=== PATIENT | male | born 1945 | race Caucasian/White ===

== ENCOUNTER 2018-05-09 10:17 | Day surgery (SDC) | payer MEDICARE, MEDICAID ==
[~2018-05-09] VITALS: Ht 185.4 cm; Wt 126.6 kg
[2018-05-09] VITALS (13 sets, daily range): BP systolic 123–148; BP diastolic 65–85
[2018-05-09] MEDS ORDERED: diphenhydrAMINE 25mg capsule PO PRN (10:45)
[2018-05-09] MEDS ORDERED: LORazepam 0.5 MG tablet PO PRN (10:45)
[2018-05-09] MEDS ORDERED: nitroGLYCERIN 0.4mg SUBLingual tab SL PRN (10:45)
[2018-05-09] MEDS ORDERED: normal saline 1000ml 1,000 ML IV SCH (10:45)
[2018-05-09] MEDS ORDERED: BUPR150T15 PO (11:18)
[2018-05-09] MEDS ORDERED: TIOT18CA3 IH (11:18)
[2018-05-09] MEDS ORDERED: HYDR-3965 PO (11:18)
[2018-05-09] MEDS ORDERED: NITR0.4T51 SL (11:18)
[2018-05-09] MEDS ORDERED: GABA600T2 PO (11:18)
[2018-05-09] MEDS ORDERED: ASCO500C15 PO (11:18)
[2018-05-09] MEDS ORDERED: OSC500T PO (11:18)
[2018-05-09] MEDS ORDERED: CYAN250014 PO (11:18)
[2018-05-09] MEDS ORDERED: CARV-50 PO (11:18)
[2018-05-09] MEDS ORDERED: RIVA20TA PO (11:18)
[2018-05-09] MEDS ORDERED: AMIO200T27 PO (11:18)
[2018-05-09] MEDS ORDERED: OMEG-42 PO (11:18)
[2018-05-09] MEDS ORDERED: MULT-1085 PO (11:18)
[2018-05-09] MEDS ORDERED: ALBU18HF2 INH (11:18)
[2018-05-09 11:27] LABS: BASOPHILS % (AUTO) 0.4 % (0-1); EOSINOPHILS # (AUTO) 0.1 X10'3 (0-0.9); HEMATOCRIT 46.5 % (42.0-52.0); LYMPHOCYTES # (AUTO) 1.2 X10'3 (1.1-4.8); LYMPHOCYTES % (AUTO) 18.5 % (21-51); MEAN CORPUSCULAR HEMOGLOBIN 34.1 PG (27.0-31.0); MEAN CORPUSCULAR HGB CONC 34.3 % (33.0-36.5); MEAN CORPUSCULAR VOLUME 99.3 FL (78-98); MEAN PLATELET VOLUME 7.9 FL (7.4-10.4); MONOCYTES # (AUTO) 0.4 X10'3 (0-0.9); NEUTROPHILS # (AUTO) 4.8 X10'3 (1.8-7.7); NEUTROPHILS % (AUTO) 74.1 % (42-75); PLATELET COUNT 207 X10'3 (140-440); RED BLOOD COUNT 4.69 X10'6 (4.70-6.10); WHITE BLOOD COUNT 6.5 X10'3 (4.5-11.0)
[2018-05-09 11:36] LABS: ALBUMIN 4.1 G/DL (3.4-5.0); ANION GAP 12 (8-16); BLOOD UREA NITROGEN 9 MG/DL (7-18); BUN/CREATININE RATIO 9.4 (5.4-32.0); CALCIUM 9.3 MG/DL (8.5-10.1); CHLORIDE 103 MMOL/L (99-107); CREATININE 0.96 MG/DL (0.60-1.10); GLUCOSE 86 MG/DL (70-104); SODIUM 141 MMOL/L (135-145); TOTAL CARBON DIOXIDE 26.1 MMOL/L (24-32); eGFR 77 ML/MIN
[2018-05-09 11:43] LABS: PARTIAL THROMBOPLASTIN TIME 28 SECONDS (22-32); PROTHROMBIN TIME 10.2 SECONDS (9.0-12.0)
[2018-05-09] MEDS ORDERED: LIDOcaine 1% 30ml preserv. free vial ONE (13:21)
[2018-05-09] MEDS ORDERED: fentaNYL/PF 50MCG/1 ML 2ML syringe ONE ×2 (13:21→14:34)
[2018-05-09] MEDS ORDERED: midazolam 2 mg/2 ml injection ONE ×2 (13:21→14:35)
[2018-05-09] MEDS ORDERED: iohexol 350 MG/ML 50ML vial IV ONE ×2 (13:21→14:30)
[2018-05-09] MEDS ORDERED: iohexol 350MG/ML 100ml bottle IV ONE (13:21)
[2018-05-09] MEDS ORDERED: proCHLORperazine 10 MG/2 ml inj IV PRN (15:40)
[2018-05-09] MEDS ORDERED: OXAZEpam 15mg capsule PO PRN (15:40)
[2018-05-09] MEDS ORDERED: ondansetron/PF 4mg/2ml inj IV PRN (15:40)
[2018-05-09] MEDS ORDERED: HYDROcodone/acetaminophen 5mg/325mg tablet PO PRN (15:40)
[2018-05-09] MEDS ORDERED: HYDROcodone/acetaminophen 10/325mg tab PO PRN (15:40)
== END 2018-05-09 21:00 | disposition home or self-care (01) ==
LOC: SSTAY O 10:17
PROVIDERS: ATTEND Internal Medicine Cardiovascular Disease
DX: I25.10 Atherosclerotic heart disease of native coronary artery without angina pectoris (principal); I45.19 Other right bundle-branch block; G47.33 Obstructive sleep apnea (adult) (pediatric); I10 Essential (primary) hypertension; M19.90 Unspecified osteoarthritis, unspecified site; G89.29 Other chronic pain; I48.91 Unspecified atrial fibrillation; G62.89 Other specified polyneuropathies; I71.4 Abdominal aortic aneurysm, without rupture; F17.210 Nicotine dependence, cigarettes, uncomplicated; Z86.711 Personal history of pulmonary embolism; Z86.79 Personal history of other diseases of the circulatory system; Z98.41 Cataract extraction status, right eye; Z98.42 Cataract extraction status, left eye; Z85.818 Personal history of malignant neoplasm of other sites of lip, oral cavity, and pharynx; Z86.718 Personal history of other venous thrombosis and embolism; Z95.828 Presence of other vascular implants and grafts; Z79.891 Long term (current) use of opiate analgesic; Z86.74 Personal history of sudden cardiac arrest; Z96.642 Presence of left artificial hip joint; Z85.819 Personal history of malignant neoplasm of unspecified site of lip, oral cavity, and pharynx; Z79.899 Other long term (current) drug therapy; Z98.890 Other specified postprocedural states
CPT/HCPCS: 36415; 71046; 75625; 80048; 85025; 85610; 85730; 93005; 93458; 99152; 99153; A6257; C1760; C1769; J1644; J2250; J3010; J3490; J7030; Q0163; Q9967; 93567; A4620

== ENCOUNTER 2024-04-02 06:58 | Inpatient (IN) | payer MEDICARE, MEDICAID ==
[2024-04-02] VITALS (19 sets, daily range): BP systolic 74–135; BP diastolic 42–93; PULSE 81–101; RESP 18–26; TEMP 96.5–97.3; O2SAT 92–97
[~2024-04-02] VITALS: Ht 180.3 cm; Wt 93.2 kg
[~2024-04-02 06:58] MED LIST: ALBU18HF2 INH; AMIO200T27 PO; ASCO500C18 PO; BUPR-231 PO; CARV-50 PO; CYAN250014 PO; GABA600T13 PO; HYDR-3965 PO; MULT-1085 PO; NITR0.4T51 SL; OMEG-42 PO; OSC500T PO; RIVA20TA PO; TIOT18CA3 IH
[2024-04-02] MEDS: diltiazem-NS 100mg/100ml 100 ML IV SCH ×2 (08:14→14:21)
[2024-04-02 09:06] LABS: BASOPHILS # (AUTO) 0.1 X10'3 (0-0.2); BASOPHILS % (AUTO) 0.6 % (0-1); EOSINOPHILS % (AUTO) 0.4 % (0-6); HEMATOCRIT 40.4 % (42.0-52.0); HEMOGLOBIN 13.2 g/dl (14.0-17.9); LYMPHOCYTES # (AUTO) 0.9 X10'3 (1.1-4.8); MEAN CORPUSCULAR HEMOGLOBIN 29.8 PG (27.0-31.0); MEAN CORPUSCULAR HGB CONC 32.6 g/dL (33.0-36.5); MEAN CORPUSCULAR VOLUME 91.3 FL (78-98); MONOCYTES % (AUTO) 12.9 % (2-12); NEUTROPHILS # (AUTO) 5.8 X10'3 (1.8-7.7); NEUTROPHILS % (AUTO) 74.1 % (42-75); PLATELET COUNT 167 X10'3 (140-440); RED BLOOD COUNT 4.43 X10'6 (4.70-6.10); RED CELL DISTRIBUTION WIDTH 17.3 % (11.5-14.5); WHITE BLOOD COUNT 7.9 X10'3 (4.5-11.0)
[2024-04-02 09:28] LABS: ALBUMIN 3.3 G/DL (3.4-5.0); ANION GAP 9 (8-16); BLOOD UREA NITROGEN 19 MG/DL (7-18); BUN/CREATININE RATIO 15.8 (10.0-20.0); CALCIUM 9.4 MG/DL (8.5-10.1); CHLORIDE 103 MMOL/L (99-107); GLUCOSE 107 MG/DL (70-104); POTASSIUM 4.3 MMOL/L (3.5-5.1); PRO BRAIN NATRIURETIC PEPTIDE 17879 PG/ML (0-450); SODIUM 138 MMOL/L (135-145); TOTAL CARBON DIOXIDE 25.6 MMOL/L (24-32); eCRCL 55 ML/MIN; eGFR 59 ML/MIN
[2024-04-02] MEDS ORDERED: magnesium sulf-water 2g/50mL 50 ML IV PRN (09:40)
[2024-04-02] MEDS ORDERED: potassium Cl 20 mEq SR tablet PO PRN ×2 (09:40)
[2024-04-02] MEDS ORDERED: ondansetron/PF 4mg/2ml inj IV PRN (09:40)
[2024-04-02] MEDS ORDERED: magnesium sulf-water 4G/100mL 100 ML IV PRN (09:40)
[2024-04-02] MEDS ORDERED: potassium Cl 40MEQ/1/2NS 520ml 520 ML IV PRN (09:40)
[2024-04-02] MEDS ORDERED: magnesium Cl slow-release 64mg tablet PO PRN (09:40)
[2024-04-02] MEDS: K and/or MAG REPLACEMENT MC SCH (20:00)
[2024-04-03] VITALS (24 sets, daily range): BP systolic 92–124; BP diastolic 59–81; PULSE 56–121; RESP 13–28; TEMP 96.5–98.1; O2SAT 87–95
[2024-04-03] MEDS: furosemide 20 MG/2 ML vial IV ONE (04:48)
[2024-04-03] MEDS: levalbuterol 1.25mg/0.5ml nebule IH PRN (05:08)
[2024-04-03 06:36] LABS: BASOPHILS % (AUTO) 0.5 % (0-1); EOSINOPHILS % (AUTO) 0.1 % (0-6); HEMATOCRIT 40.6 % (42.0-52.0); HEMOGLOBIN 12.8 g/dl (14.0-17.9); LYMPHOCYTES # (AUTO) 0.3 X10'3 (1.1-4.8); LYMPHOCYTES % (AUTO) 4.2 % (21-51); MEAN CORPUSCULAR HEMOGLOBIN 28.7 PG (27.0-31.0); MEAN CORPUSCULAR HGB CONC 31.6 g/dL (33.0-36.5); MEAN PLATELET VOLUME 9.3 FL (7.4-10.4); MONOCYTES # (AUTO) 0.7 X10'3 (0-0.9); MONOCYTES % (AUTO) 9.2 % (2-12); NEUTROPHILS # (AUTO) 6.6 X10'3 (1.8-7.7); PLATELET COUNT 174 X10'3 (140-440); RED BLOOD COUNT 4.47 X10'6 (4.70-6.10); RED CELL DISTRIBUTION WIDTH 16.5 % (11.5-14.5); WHITE BLOOD COUNT 7.7 X10'3 (4.5-11.0)
[2024-04-03 06:47] LABS: ALBUMIN 3.4 G/DL (3.4-5.0); ANION GAP 14 (8-16); BLOOD UREA NITROGEN 23 MG/DL (7-18); CALCIUM 9.7 MG/DL (8.5-10.1); CHLORIDE 101 MMOL/L (99-107); CREATININE 1.28 MG/DL (0.60-1.10); GLUCOSE 112 MG/DL (70-104); MAGNESIUM 2.1 MG/DL (1.5-2.4); POTASSIUM 4.8 MMOL/L (3.5-5.1); SODIUM 138 MMOL/L (135-145); TOTAL CARBON DIOXIDE 22.9 MMOL/L (24-32); eCRCL 51 ML/MIN; eGFR 54 ML/MIN
[2024-04-03] MEDS: buPROPion SR 150mg tablet PO SCH (08:00)
[2024-04-03] MEDS ORDERED: DULO20CA18 PO (08:25)
[2024-04-03] MEDS ORDERED: LACT10SO3 PO (08:25)
[2024-04-03] MEDS ORDERED: BENZ-111 PO (08:25)
[2024-04-03] MEDS ORDERED: PRAV20TA4 PO (08:25)
[2024-04-03] MEDS ORDERED: FLUD0.1T PO (08:25)
[2024-04-03] MEDS ORDERED: TRAM50TA2 PO (08:25)
[2024-04-03] MEDS ORDERED: ACET-1008 PO (08:25)
[2024-04-03] MEDS ORDERED: LEVO112T5 PO (08:25)
[2024-04-03] MEDS ORDERED: MIDO10TA PO (08:25)
[2024-04-03] MEDS ORDERED: BUDE180A INH (08:25)
[2024-04-03] MEDS ORDERED: CELE-148 PO (08:25)
[2024-04-03] MEDS ORDERED: nitroGLYCERIN 0.4mg SUBLingual tab SL PRN (13:45)
[2024-04-03] MEDS: PERFLUTREN PROTEIN-A MICROSPHR (Optison) 0.22 MG/ML 3ML VIAL IV ONE (13:50)
[2024-04-03] MEDS: levoTHYROXINE 112mcg tablet PO SCH (14:12)
[2024-04-03] MEDS: traMADol 50MG tablet PO PRN (14:13)
[2024-04-03] MEDS: rivaroxaban 20mg tablet PO SCH (17:46)
[2024-04-03] MEDS: budesonide 0.5mg/2ml UD nebule IH SCH (20:31)
[2024-04-03] MEDS: ipratropium 0.5 MG/2.5ML nebule NEB PRN (20:31)
[2024-04-03] MEDS: duloxetine 20mg capsule.DR PO SCH (21:04)
[2024-04-03] MEDS: midodrine tablet 2.5 MG TABLET PO SCH (21:05)
[2024-04-03] MEDS: benzonatate 100mg capsule PO PRN (21:19)
[2024-04-04] VITALS (15 sets, daily range): BP systolic 90–133; BP diastolic 63–85; PULSE 55–119; RESP 18–28; TEMP 97–97.8; O2SAT 83–98
[2024-04-04] MEDS: methylPREDNISolone sod succ 125mg/2ml vial IV ONE (02:32)
[2024-04-04] MEDS: morphine 4 MG/ML inj SYRINge IV PRN (02:33)
[2024-04-04 09:16] LABS: BASOPHILS % (AUTO) 0.4 % (0-1); EOSINOPHILS % (AUTO) 0.1 % (0-6); HEMATOCRIT 43.8 % (42.0-52.0); HEMOGLOBIN 13.9 g/dl (14.0-17.9); LYMPHOCYTES # (AUTO) 0.2 X10'3 (1.1-4.8); LYMPHOCYTES % (AUTO) 2.7 % (21-51); MEAN CORPUSCULAR HEMOGLOBIN 28.9 PG (27.0-31.0); MEAN CORPUSCULAR HGB CONC 31.6 g/dL (33.0-36.5); MEAN CORPUSCULAR VOLUME 91.5 FL (78-98); MEAN PLATELET VOLUME 9.5 FL (7.4-10.4); MONOCYTES # (AUTO) 0.3 X10'3 (0-0.9); MONOCYTES % (AUTO) 3.6 % (2-12); NEUTROPHILS # (AUTO) 7.4 X10'3 (1.8-7.7); NEUTROPHILS % (AUTO) 93.2 % (42-75); PLATELET COUNT 178 X10'3 (140-440); RED BLOOD COUNT 4.79 X10'6 (4.70-6.10); WHITE BLOOD COUNT 7.9 X10'3 (4.5-11.0)
[2024-04-04 09:20] LABS: ALBUMIN 3.6 G/DL (3.4-5.0); ANION GAP 16 (8-16); BLOOD UREA NITROGEN 28 MG/DL (7-18); BUN/CREATININE RATIO 23.9 (10.0-20.0); CALCIUM 9.9 MG/DL (8.5-10.1); CHLORIDE 98 MMOL/L (99-107); CREATININE 1.17 MG/DL (0.60-1.10); GLUCOSE 123 MG/DL (70-104); MAGNESIUM 2.3 MG/DL (1.5-2.4); SODIUM 134 MMOL/L (135-145); TOTAL CARBON DIOXIDE 19.9 MMOL/L (24-32); eCRCL 56 ML/MIN; eGFR 60 ML/MIN
[2024-04-04 09:38] LABS: POTASSIUM 5.1 MMOL/L (3.5-5.1)
[2024-04-04] MEDS: atorvastatin 10mg tablet PO SCH (10:18)
[2024-04-04] MEDS: lactulose 20gm/30ml cup PO SCH (10:18)
[2024-04-04] MEDS ORDERED: carvedilol 6.25mg tablet PO SCH (20:45)
[2024-04-04] MEDS: lisinopril 5mg tablet PO SCH (21:46)
[2024-04-04] MEDS: furosemide 40mg/4ml inj IV SCH (21:46)
[2024-04-05] VITALS (13 sets, daily range): BP systolic 89–126; BP diastolic 56–89; PULSE 55–100; RESP 14–22; TEMP 97.4–97.9; O2SAT 93–100
[2024-04-05] MEDS: carVEDilol 12.5mg tablet PO SCH (07:52)
[2024-04-05] MEDS: apixaban 5mg tablet PO SCH (07:53)
[2024-04-05 09:09] LABS: BASOPHILS % (AUTO) 0.3 % (0-1); EOSINOPHILS % (AUTO) 0 % (0-6); HEMATOCRIT 40.5 % (42.0-52.0); HEMOGLOBIN 12.9 g/dl (14.0-17.9); LYMPHOCYTES # (AUTO) 0.3 X10'3 (1.1-4.8); LYMPHOCYTES % (AUTO) 3.5 % (21-51); MEAN CORPUSCULAR HEMOGLOBIN 28.9 PG (27.0-31.0); MEAN CORPUSCULAR HGB CONC 31.9 g/dL (33.0-36.5); MEAN CORPUSCULAR VOLUME 90.5 FL (78-98); MEAN PLATELET VOLUME 9.5 FL (7.4-10.4); MONOCYTES # (AUTO) 0.7 X10'3 (0-0.9); MONOCYTES % (AUTO) 8.9 % (2-12); NEUTROPHILS # (AUTO) 7.2 X10'3 (1.8-7.7); NEUTROPHILS % (AUTO) 87.3 % (42-75); PLATELET COUNT 147 X10'3 (140-440); RED BLOOD COUNT 4.47 X10'6 (4.70-6.10); RED CELL DISTRIBUTION WIDTH 17.1 % (11.5-14.5); WHITE BLOOD COUNT 8.2 X10'3 (4.5-11.0)
[2024-04-05 09:30] LABS: ALBUMIN 3.4 G/DL (3.4-5.0); ANION GAP 10 (8-16); BLOOD UREA NITROGEN 36 MG/DL (7-18); BUN/CREATININE RATIO 31.3 (10.0-20.0); CALCIUM 9.6 MG/DL (8.5-10.1); CHLORIDE 97 MMOL/L (99-107); CREATININE 1.15 MG/DL (0.60-1.10); GLUCOSE 100 MG/DL (70-104); MAGNESIUM 2.2 MG/DL (1.5-2.4); POTASSIUM 5.1 MMOL/L (3.5-5.1); SODIUM 133 MMOL/L (135-145); THYROID STIMULATING HORMONE 2.04 ulU/ml (0.34-4.50); TOTAL CARBON DIOXIDE 26.2 MMOL/L (24-32); eCRCL 57 ML/MIN; eGFR 62 ML/MIN
[2024-04-05] MEDS: magnesium hydroxide 30ml (MOM) UD suspension PO ONE (21:17)
[2024-04-05] MEDS: polyethylene glycol 3350 17gm powd pack PO ONE (21:17)
[2024-04-06] VITALS (11 sets, daily range): BP systolic 87–102; BP diastolic 53–74; PULSE 50–97; RESP 16–20; TEMP 97–97.8; O2SAT 93–95
[2024-04-06 09:38] LABS: HEMATOCRIT 47.4 % (42.0-52.0); HEMOGLOBIN 14.8 g/dl (14.0-17.9); MEAN CORPUSCULAR HEMOGLOBIN 29.4 PG (27.0-31.0); MEAN CORPUSCULAR HGB CONC 31.3 g/dL (33.0-36.5); MEAN CORPUSCULAR VOLUME 94.1 FL (78-98); MEAN PLATELET VOLUME 9.7 FL (7.4-10.4); PLATELET COUNT 136 X10'3 (140-440); RED BLOOD COUNT 5.03 X10'6 (4.70-6.10); RED CELL DISTRIBUTION WIDTH 17.6 % (11.5-14.5); WHITE BLOOD COUNT 11.9 X10'3 (4.5-11.0)
[2024-04-06 09:55] LABS: ANISOCYTOSIS 1+; PLATELET ESTIMATE DECREASED; TOTAL CELLS COUNTED 100
[2024-04-06 09:56] LABS: BURR CELLS FEW; ELLIPTOCYTES 1+; POLYCHROMASIA FEW
[2024-04-06 11:10] LABS: ALBUMIN 3.1 G/DL (3.4-5.0); ANION GAP 4 (8-16); BLOOD UREA NITROGEN 47 MG/DL (7-18); BUN/CREATININE RATIO 37.6 (10.0-20.0); CALCIUM 9.3 MG/DL (8.5-10.1); CHLORIDE 99 MMOL/L (99-107); CREATININE 1.25 MG/DL (0.60-1.10); GLUCOSE 104 MG/DL (70-104); MAGNESIUM 2.2 MG/DL (1.5-2.4); POTASSIUM 5.2 MMOL/L (3.5-5.1); SODIUM 134 MMOL/L (135-145); TOTAL CARBON DIOXIDE 31.1 MMOL/L (24-32); eCRCL 53 ML/MIN; eGFR 56 ML/MIN
[2024-04-06] MEDS: furosemide 40mg tablet PO ONE (12:19)
[2024-04-06] MEDS: furosemide 40mg tablet PO SCH (19:54)
[2024-04-07] VITALS (20 sets, daily range): BP systolic 77–103; BP diastolic 39–62; PULSE 82–97; RESP 13–25; TEMP 97–99.2; O2SAT 86–97
[2024-04-07 06:14] LABS: BASOPHILS % (AUTO) 0.2 % (0-1); EOSINOPHILS % (AUTO) 0.1 % (0-6); HEMATOCRIT 39.8 % (42.0-52.0); HEMOGLOBIN 12.7 g/dl (14.0-17.9); LYMPHOCYTES # (AUTO) 0.7 X10'3 (1.1-4.8); LYMPHOCYTES % (AUTO) 8.1 % (21-51); MEAN CORPUSCULAR VOLUME 90.8 FL (78-98); MEAN PLATELET VOLUME 9.4 FL (7.4-10.4); MONOCYTES # (AUTO) 1.3 X10'3 (0-0.9); MONOCYTES % (AUTO) 14.8 % (2-12); NEUTROPHILS # (AUTO) 6.6 X10'3 (1.8-7.7); NEUTROPHILS % (AUTO) 76.8 % (42-75); PLATELET COUNT 134 X10'3 (140-440); RED BLOOD COUNT 4.39 X10'6 (4.70-6.10); RED CELL DISTRIBUTION WIDTH 16.8 % (11.5-14.5); WHITE BLOOD COUNT 8.6 X10'3 (4.5-11.0)
[2024-04-07 06:28] LABS: ALBUMIN 3.2 G/DL (3.4-5.0); ANION GAP 7 (8-16); BLOOD UREA NITROGEN 50 MG/DL (7-18); CALCIUM 9.4 MG/DL (8.5-10.1); CHLORIDE 99 MMOL/L (99-107); CREATININE 1.25 MG/DL (0.60-1.10); GLUCOSE 88 MG/DL (70-104); POTASSIUM 5.6 MMOL/L (3.5-5.1); SODIUM 135 MMOL/L (135-145); TOTAL CARBON DIOXIDE 29.1 MMOL/L (24-32); eCRCL 53 ML/MIN; eGFR 56 ML/MIN
[2024-04-07] MEDS: furosemide 20MG tablet PO SCH (08:40)
[2024-04-07] MEDS: lisinopril 2.5mg tablet PO SCH (08:40)
[2024-04-07 14:17] LABS: PRO BRAIN NATRIURETIC PEPTIDE 18957 PG/ML (0-450)
[2024-04-07 14:27] LABS: ABG BASE EXCESS 3.3 mmol/L (-2.0-3.0); ABG HCO3 27.8 mmol/L (21.0-28.0); ABG OXYGEN SATURATION 97.6 % (94.0-98.0); ABG PCO2 (T) 40.5 mmHg (35.0-48.0); ABG PH (T) 7.451 (7.350-7.450); ABG PO2 (T) 91.1 mmHg (83.0-108.0); ALLEN'S TEST POSITIVE; FCOHb 1.2 % (0.5-1.5); FHHb 2.4 % (0.0-5.0); FMetHb 0.3 % (0.0-1.5); FO2Hb 96.1 % (94.0-98.0); MODE NASAL CANNULA; PATIENT TEMPERATURE 36.2; TOTAL HEMOGLOBIN 12.9 G/dl (13.5-17.5)
[2024-04-07] MEDS: albumin (human) 25% 100 ML IV solution IV ONE (15:34)
[2024-04-07] MEDS: DOBUTamine-DoBUTrex 500mg/D5W 250 ML IV SCH (19:44)
[2024-04-07] MEDS: carVEDilol 3.125mg tablet PO SCH (19:45)
[2024-04-08] VITALS (19 sets, daily range): BP systolic 79–105; BP diastolic 45–77; PULSE 78–101; RESP 12–20; TEMP 96.3–98.1; O2SAT 90–99
[2024-04-08 10:58] LABS: BASOPHILS % (AUTO) 0 % (0-1); EOSINOPHILS % (AUTO) 0.5 % (0-6); HEMATOCRIT 38.6 % (42.0-52.0); HEMOGLOBIN 11.9 g/dl (14.0-17.9); LYMPHOCYTES # (AUTO) 0.7 X10'3 (1.1-4.8); LYMPHOCYTES % (AUTO) 10.4 % (21-51); MEAN CORPUSCULAR HEMOGLOBIN 28.6 PG (27.0-31.0); MEAN CORPUSCULAR HGB CONC 30.8 g/dL (33.0-36.5); MEAN CORPUSCULAR VOLUME 92.8 FL (78-98); MEAN PLATELET VOLUME 9.1 FL (7.4-10.4); MONOCYTES % (AUTO) 15.9 % (2-12); NEUTROPHILS # (AUTO) 4.7 X10'3 (1.8-7.7); NEUTROPHILS % (AUTO) 73.2 % (42-75); PLATELET COUNT 115 X10'3 (140-440); RED BLOOD COUNT 4.16 X10'6 (4.70-6.10); RED CELL DISTRIBUTION WIDTH 17.1 % (11.5-14.5); WHITE BLOOD COUNT 6.4 X10'3 (4.5-11.0)
[2024-04-08 11:14] LABS: ALANINE AMINOTRANSFERASE 302 U/L (12-78); ALKALINE PHOSPHATASE 132 IU/L (46-116); ANION GAP 6 (8-16); ASPARTATE AMINO TRANSFERASE 62 U/L (10-37); BILIRUBIN,TOTAL 1.4 MG/DL (0.1-1.0); BLOOD UREA NITROGEN 39 MG/DL (7-18); BUN/CREATININE RATIO 37.1 (10.0-20.0); CHLORIDE 100 MMOL/L (99-107); CREATININE 1.05 MG/DL (0.60-1.10); GLUCOSE 104 MG/DL (70-104); POTASSIUM 4.7 MMOL/L (3.5-5.1); SODIUM 132 MMOL/L (135-145); TOTAL PROTEIN 6.1 G/DL (6.4-8.2); eCRCL 63 ML/MIN; eGFR 68 ML/MIN
[2024-04-08 11:21] LABS: ANISOCYTOSIS 1+; ELLIPTOCYTES FEW; PLATELET ESTIMATE DECREASED; TOTAL CELLS COUNTED 100
[2024-04-08] MEDS: lactose-reduced food (Ensure Enlive) - 237ml bottle PO SCH (13:00)
[2024-04-08] MEDS ORDERED: iohexol 300mg/ml 100ml inj. ONE (13:02)
[2024-04-08] MEDS: HYDROcodone/acetaminophen 5mg/325mg tablet PO PRN (13:10)
[2024-04-09] VITALS (12 sets, daily range): BP systolic 95–113; BP diastolic 50–77; PULSE 44–123; RESP 16–22; TEMP 97–98; O2SAT 91–100
[2024-04-09] MEDS: duloxetine 20mg capsule.DR PO SCH (07:51)
[2024-04-09 09:08] LABS: BASOPHILS # (AUTO) 0.1 X10'3 (0-0.2); BASOPHILS % (AUTO) 0.5 % (0-1); EOSINOPHILS % (AUTO) 0.1 % (0-6); HEMATOCRIT 38.6 % (42.0-52.0); HEMOGLOBIN 12.3 g/dl (14.0-17.9); LYMPHOCYTES # (AUTO) 0.9 X10'3 (1.1-4.8); LYMPHOCYTES % (AUTO) 7.5 % (21-51); MEAN CORPUSCULAR HEMOGLOBIN 28.4 PG (27.0-31.0); MEAN CORPUSCULAR HGB CONC 31.9 g/dL (33.0-36.5); MEAN CORPUSCULAR VOLUME 89.2 FL (78-98); MONOCYTES # (AUTO) 1.4 X10'3 (0-0.9); MONOCYTES % (AUTO) 11.6 % (2-12); NEUTROPHILS # (AUTO) 9.9 X10'3 (1.8-7.7); NEUTROPHILS % (AUTO) 80.3 % (42-75); PLATELET COUNT 163 X10'3 (140-440); RED BLOOD COUNT 4.33 X10'6 (4.70-6.10); RED CELL DISTRIBUTION WIDTH 16.9 % (11.5-14.5); WHITE BLOOD COUNT 12.3 X10'3 (4.5-11.0)
[2024-04-09 09:19] LABS: ALANINE AMINOTRANSFERASE 264 U/L (12-78); ALBUMIN 3.6 G/DL (3.4-5.0); ALBUMIN/GLOBULIN RATIO 1.1 (1.1-1.5); ALKALINE PHOSPHATASE 154 IU/L (46-116); ANION GAP 6 (8-16); ASPARTATE AMINO TRANSFERASE 40 U/L (10-37); BILIRUBIN,TOTAL 1.8 MG/DL (0.1-1.0); BLOOD UREA NITROGEN 38 MG/DL (7-18); BUN/CREATININE RATIO 34.9 (10.0-20.0); CALCIUM 9.5 MG/DL (8.5-10.1); CHLORIDE 99 MMOL/L (99-107); CREATININE 1.09 MG/DL (0.60-1.10); GLUCOSE 124 MG/DL (70-104); POTASSIUM 4.9 MMOL/L (3.5-5.1); SODIUM 134 MMOL/L (135-145); TOTAL CARBON DIOXIDE 29.4 MMOL/L (24-32); TOTAL PROTEIN 6.8 G/DL (6.4-8.2); eCRCL 60 ML/MIN; eGFR 66 ML/MIN
[2024-04-09] MEDS: LORazepam 2 mg/ml vial IV ONE (16:51)
[2024-04-09 17:11] LABS: PRO BRAIN NATRIURETIC PEPTIDE 26058 PG/ML (0-450)
[2024-04-09] MEDS: albuterol 2.5 MG/3 ML nebule NEB PRN (19:30)
[2024-04-09] MEDS: furosemide 20MG tablet PO SCH (20:00)
[2024-04-10] VITALS (12 sets, daily range): BP systolic 92–104; BP diastolic 54–77; PULSE 62–125; RESP 15–24; TEMP 97.3–98; O2SAT 88–96
[2024-04-10] MEDS: LORazepam 2 mg/ml vial IV ONE (02:26)
[2024-04-10 12:02] LABS: BASOPHILS % (AUTO) 0.3 % (0-1); EOSINOPHILS % (AUTO) 0.1 % (0-6); HEMATOCRIT 39.2 % (42.0-52.0); HEMOGLOBIN 12.2 g/dl (14.0-17.9); LYMPHOCYTES # (AUTO) 0.9 X10'3 (1.1-4.8); LYMPHOCYTES % (AUTO) 5.7 % (21-51); MEAN CORPUSCULAR HEMOGLOBIN 28.2 PG (27.0-31.0); MEAN CORPUSCULAR HGB CONC 31.2 g/dL (33.0-36.5); MEAN CORPUSCULAR VOLUME 90.4 FL (78-98); MEAN PLATELET VOLUME 9.4 FL (7.4-10.4); MONOCYTES # (AUTO) 1.4 X10'3 (0-0.9); MONOCYTES % (AUTO) 8.6 % (2-12); NEUTROPHILS # (AUTO) 13.8 X10'3 (1.8-7.7); NEUTROPHILS % (AUTO) 85.3 % (42-75); PLATELET COUNT 143 X10'3 (140-440); RED BLOOD COUNT 4.34 X10'6 (4.70-6.10); RED CELL DISTRIBUTION WIDTH 17.1 % (11.5-14.5); WHITE BLOOD COUNT 16.1 X10'3 (4.5-11.0)
[2024-04-10 12:16] LABS: ALANINE AMINOTRANSFERASE 179 U/L (12-78); ALKALINE PHOSPHATASE 133 IU/L (46-116); ANION GAP 6 (8-16); ASPARTATE AMINO TRANSFERASE 34 U/L (10-37); BILIRUBIN,TOTAL 2.4 MG/DL (0.1-1.0); BLOOD UREA NITROGEN 33 MG/DL (7-18); BUN/CREATININE RATIO 28.7 (10.0-20.0); CALCIUM 9.1 MG/DL (8.5-10.1); CHLORIDE 101 MMOL/L (99-107); CREATININE 1.15 MG/DL (0.60-1.10); GLUCOSE 112 MG/DL (70-104); POTASSIUM 4.7 MMOL/L (3.5-5.1); SODIUM 136 MMOL/L (135-145); TOTAL PROTEIN 6.1 G/DL (6.4-8.2); eCRCL 57 ML/MIN; eGFR 62 ML/MIN
[2024-04-10 13:46] LABS: ABG BASE EXCESS 3.3 mmol/L (-2.0-3.0); ABG HCO3 27.2 mmol/L (21.0-28.0); ABG PCO2 (T) 37.7 mmHg (35.0-48.0); ABG PH (T) 7.473 (7.350-7.450); ABG PO2 (T) 78.2 mmHg (83.0-108.0); ALLEN'S TEST POSITIVE; FCOHb 1.4 % (0.5-1.5); FHHb 3.9 % (0.0-5.0); FLOW 2 L/min; FMetHb 0.3 % (0.0-1.5); FO2Hb 94.4 % (94.0-98.0); MODE NASAL CANNULA; PATIENT TEMPERATURE 36.4
[2024-04-11] MEDS: CefTRIAXone 2gm/D5W 50ml BAG 50 ML IV SCH (00:01)
[2024-04-11 02:00] VITALS: BP 94/48; PULSE 104; RESP 14; TEMP 97.2; O2SAT 93
[2024-04-11 07:02] LABS: BASOPHILS % (AUTO) 0.2 % (0-1); EOSINOPHILS # (AUTO) 0.1 X10'3 (0-0.9); EOSINOPHILS % (AUTO) 0.7 % (0-6); HEMATOCRIT 39.2 % (42.0-52.0); HEMOGLOBIN 12.4 g/dl (14.0-17.9); LYMPHOCYTES # (AUTO) 0.9 X10'3 (1.1-4.8); LYMPHOCYTES % (AUTO) 6.4 % (21-51); MEAN CORPUSCULAR HEMOGLOBIN 28.5 PG (27.0-31.0); MEAN CORPUSCULAR HGB CONC 31.6 g/dL (33.0-36.5); MEAN CORPUSCULAR VOLUME 90.1 FL (78-98); MEAN PLATELET VOLUME 9.4 FL (7.4-10.4); MONOCYTES # (AUTO) 1.4 X10'3 (0-0.9); MONOCYTES % (AUTO) 9.6 % (2-12); NEUTROPHILS # (AUTO) 11.8 X10'3 (1.8-7.7); NEUTROPHILS % (AUTO) 83.1 % (42-75); PLATELET COUNT 157 X10'3 (140-440); RED BLOOD COUNT 4.35 X10'6 (4.70-6.10); RED CELL DISTRIBUTION WIDTH 17.2 % (11.5-14.5); WHITE BLOOD COUNT 14.2 X10'3 (4.5-11.0)
[2024-04-11 07:23] LABS: ALANINE AMINOTRANSFERASE 148 U/L (12-78); ALBUMIN 2.9 G/DL (3.4-5.0); ALBUMIN/GLOBULIN RATIO 0.9 (1.1-1.5); ALKALINE PHOSPHATASE 133 IU/L (46-116); ANION GAP 7 (8-16); ASPARTATE AMINO TRANSFERASE 30 U/L (10-37); BILIRUBIN,TOTAL 1.7 MG/DL (0.1-1.0); BLOOD UREA NITROGEN 31 MG/DL (7-18); BUN/CREATININE RATIO 29.8 (10.0-20.0); CHLORIDE 101 MMOL/L (99-107); CREATININE 1.04 MG/DL (0.60-1.10); GLUCOSE 92 MG/DL (70-104); POTASSIUM 4.2 MMOL/L (3.5-5.1); SODIUM 137 MMOL/L (135-145); TOTAL CARBON DIOXIDE 29.1 MMOL/L (24-32); TOTAL PROTEIN 6.1 G/DL (6.4-8.2); eCRCL 63 ML/MIN; eGFR 69 ML/MIN
[2024-04-11 08:00] VITALS: RESP 18; O2SAT 96
[2024-04-11 08:16] VITALS: PULSE 74; RESP 22; O2SAT 98
[2024-04-11 08:24] VITALS: PULSE 88; RESP 22
[2024-04-11 10:56] VITALS: BP 102/75; PULSE 114; RESP 17; TEMP 96.8; O2SAT 94
== END 2024-04-11 12:50 | DRG 291 ==
LOC: ER 06:58 → OBSVTOIN 10:07 → ED HOLD 10:07 → PCU 3S 14:00
PROVIDERS: ADMIT Internal Medicine; ATTEND Internal Medicine
DX: I11.0 Hypertensive heart disease with heart failure (principal); I50.23 Acute on chronic systolic (congestive) heart failure; J96.01 Acute respiratory failure with hypoxia; I48.20 Chronic atrial fibrillation, unspecified; I42.9 Cardiomyopathy, unspecified; I25.10 Atherosclerotic heart disease of native coronary artery without angina pectoris; F32.A Depression, unspecified; F41.9 Anxiety disorder, unspecified; G62.9 Polyneuropathy, unspecified; J44.9 Chronic obstructive pulmonary disease, unspecified; E87.5 Hyperkalemia; G89.29 Other chronic pain; E03.9 Hypothyroidism, unspecified; E78.5 Hyperlipidemia, unspecified; I34.0 Nonrheumatic mitral (valve) insufficiency; E78.00 Pure hypercholesterolemia, unspecified; Z91.048 Other nonmedicinal substance allergy status; Z86.711 Personal history of pulmonary embolism
CPT/HCPCS: 36415; 36600; 71045; 71260; 80048; 80053; 82803; 83605; 83735; 83880; 84145; 84443; 84484; 85007; 85018; 85025; 87081; 93005; 93306; 94640; 94660; 94760; 96365; 97110; 97161; 97530; 97535; 99285; A4615; A6213; A6250; A6258; A6402; A6449; A6590; G0378; J0696; J1250; J1940; J2060; J2270; J2919; J3490; J7040; J7614; P9047; Q9967

== ENCOUNTER 2024-04-14 19:15 | Inpatient (IN) | payer MEDICARE, MEDICAID ==
[~2024-04-14] VITALS: Ht 180.3 cm; Wt 102.3 kg
[~2024-04-14 19:15] MED LIST changes: +ACET-1008 PO; -AMIO200T27 PO; -ASCO500C18 PO; +BENZ-111 PO; +BUDE180A INH; -BUPR-231 PO; -CARV-50 PO; +CELE-148 PO; -CYAN250014 PO; +DULO20CA18 PO; +FLUD0.1T PO; -GABA600T13 PO; -HYDR-3965 PO; +LACT10SO3 PO; +LEVO112T5 PO; +MIDO10TA PO; -MULT-1085 PO; -OMEG-42 PO; -OSC500T PO; +PRAV20TA4 PO; +TRAM50TA2 PO
[2024-04-14] MEDS: amiodarone/D5 360MG/200ML BAG 200 ML IV SCH (21:00)
[2024-04-14 21:40] VITALS: BP 80/60; PULSE 107; RESP 20; O2SAT 96
[2024-04-14 22:00] VITALS: BP 85/62; PULSE 103; RESP 18; O2SAT 96
[2024-04-14 22:43] LABS: BASOPHILS # (AUTO) 0.1 X10'3 (0-0.2); EOSINOPHILS % (AUTO) 0.5 % (0-6); HEMOGLOBIN 12.3 g/dl (14.0-17.9); MEAN CORPUSCULAR HEMOGLOBIN 28.5 PG (27.0-31.0); RED BLOOD COUNT 4.31 X10'6 (4.70-6.10)
[2024-04-14 22:44] LABS: BASOPHILS % (AUTO) 0.5 % (0-1); EOSINOPHILS # (AUTO) 0.1 X10'3 (0-0.9); HEMATOCRIT 38.8 % (42.0-52.0); LYMPHOCYTES # (AUTO) 1.4 X10'3 (1.1-4.8); LYMPHOCYTES % (AUTO) 14.5 % (21-51); MEAN CORPUSCULAR HGB CONC 31.6 g/dL (33.0-36.5); MEAN CORPUSCULAR VOLUME 90.2 FL (78-98); MONOCYTES % (AUTO) 9.8 % (2-12); NEUTROPHILS # (AUTO) 7.4 X10'3 (1.8-7.7); NEUTROPHILS % (AUTO) 74.7 % (42-75); PLATELET COUNT 208 X10'3 (140-440); RED CELL DISTRIBUTION WIDTH 16.8 % (11.5-14.5)
[2024-04-14 23:00] VITALS: BP 96/55; PULSE 88; RESP 18; O2SAT 96
[2024-04-14 23:06] LABS: ALANINE AMINOTRANSFERASE 89 U/L (12-78); ALBUMIN 3.1 G/DL (3.4-5.0); ALBUMIN/GLOBULIN RATIO 0.9 (1.1-1.5); ALKALINE PHOSPHATASE 145 IU/L (46-116); ANION GAP 10 (8-16); ASPARTATE AMINO TRANSFERASE 26 U/L (10-37); BILIRUBIN,TOTAL 1.9 MG/DL (0.1-1.0); BLOOD UREA NITROGEN 29 MG/DL (7-18); BUN/CREATININE RATIO 24.8 (10.0-20.0); CALCIUM 9.1 MG/DL (8.5-10.1); CHLORIDE 96 MMOL/L (99-107); CREATININE 1.17 MG/DL (0.60-1.10); GLUCOSE 95 MG/DL (70-104); POTASSIUM 4.2 MMOL/L (3.5-5.1); SODIUM 133 MMOL/L (135-145); THYROID STIMULATING HORMONE 3.76 ulU/ml (0.34-4.50); TOTAL CARBON DIOXIDE 26.9 MMOL/L (24-32); TOTAL PROTEIN 6.4 G/DL (6.4-8.2); eCRCL 56 ML/MIN; eGFR 60 ML/MIN
[2024-04-14 23:40] LABS: PRO BRAIN NATRIURETIC PEPTIDE > 30000 PG/ML (0-450)
[2024-04-15] VITALS (27 sets, daily range): BP systolic 81–96; BP diastolic 42–73; PULSE 88–109; RESP 12–25; O2SAT 93–100
[2024-04-15] MEDS: acetaminophen 325mg tablet PO PRN (02:38)
[2024-04-15 04:53] LABS: BASOPHILS % (AUTO) 0.3 % (0-1); EOSINOPHILS % (AUTO) 0.4 % (0-6); HEMATOCRIT 42.2 % (42.0-52.0); HEMOGLOBIN 13.2 g/dl (14.0-17.9); LYMPHOCYTES # (AUTO) 1.4 X10'3 (1.1-4.8); LYMPHOCYTES % (AUTO) 14.3 % (21-51); MEAN CORPUSCULAR HEMOGLOBIN 28.2 PG (27.0-31.0); MEAN CORPUSCULAR HGB CONC 31.3 g/dL (33.0-36.5); MEAN PLATELET VOLUME 8.8 FL (7.4-10.4); MONOCYTES % (AUTO) 11.1 % (2-12); NEUTROPHILS % (AUTO) 73.9 % (42-75); PLATELET COUNT 204 X10'3 (140-440); RED BLOOD COUNT 4.69 X10'6 (4.70-6.10); RED CELL DISTRIBUTION WIDTH 17.2 % (11.5-14.5); WHITE BLOOD COUNT 9.5 X10'3 (4.5-11.0)
[2024-04-15 05:08] LABS: ALANINE AMINOTRANSFERASE 104 U/L (12-78); ALBUMIN 3.1 G/DL (3.4-5.0); ALBUMIN/GLOBULIN RATIO 0.9 (1.1-1.5); ALKALINE PHOSPHATASE 142 IU/L (46-116); ANION GAP 12 (8-16); ASPARTATE AMINO TRANSFERASE 57 U/L (10-37); BLOOD UREA NITROGEN 30 MG/DL (7-18); BUN/CREATININE RATIO 19.6 (10.0-20.0); CALCIUM 9.1 MG/DL (8.5-10.1); CHLORIDE 96 MMOL/L (99-107); CREATININE 1.53 MG/DL (0.60-1.10); GLUCOSE 89 MG/DL (70-104); MAGNESIUM 2.1 MG/DL (1.5-2.4); PHOSPHORUS 4.1 MG/DL (2.3-4.5); POTASSIUM 4.5 MMOL/L (3.5-5.1); SODIUM 134 MMOL/L (135-145); TOTAL CARBON DIOXIDE 26.2 MMOL/L (24-32); TOTAL PROTEIN 6.4 G/DL (6.4-8.2); eCRCL 43 ML/MIN; eGFR 44 ML/MIN
[2024-04-15] MEDS: levoTHYROXINE 112mcg tablet PO SCH (07:30)
[2024-04-15] MEDS: pantoprazole 40mg Tablet.DR PO SCH (07:31)
[2024-04-15] MEDS: amiodarone 200mg tablet PO SCH (07:31)
[2024-04-15] MEDS: furosemide 40mg/4ml inj IV SCH ×2 (07:31→20:00)
[2024-04-15] MEDS: sacubitril/valsartan 24mg-26mg tablet PO SCH (08:00)
[2024-04-15] MEDS ORDERED: magnesium sulf-water 2g/50mL 50 ML IV PRN (10:20)
[2024-04-15] MEDS ORDERED: acetaminophen 325mg tablet PO PRN ×2 (10:20→18:55)
[2024-04-15] MEDS ORDERED: albuterol 2.5 MG/3 ML nebule NEB PRN (10:20)
[2024-04-15] MEDS ORDERED: potassium Cl 20 mEq SR tablet PO PRN ×2 (10:20)
[2024-04-15] MEDS ORDERED: potassium Cl 40MEQ/1/2NS 520ml 520 ML IV PRN (10:20)
[2024-04-15] MEDS ORDERED: ondansetron/PF 4mg/2ml inj IV PRN (10:20)
[2024-04-15] MEDS ORDERED: mag hydrox/Alum hydrox/simeth 30ml oral suspension PO PRN (10:20)
[2024-04-15] MEDS ORDERED: magnesium sulf-water 4G/100mL 100 ML IV PRN (10:20)
[2024-04-15] MEDS ORDERED: magnesium Cl slow-release 64mg tablet PO PRN (10:20)
[2024-04-15] MEDS: hydrOXYzine 25 MG tablet PO ONE (11:07)
[2024-04-15] MEDS: HYDROcodone/acetaminophen 5mg/325mg tablet PO PRN (15:15)
[2024-04-15] MEDS: LORazepam 1 MG tablet PO PRN (16:52)
[2024-04-15] MEDS: rivaroxaban 15mg tablet PO SCH (18:40)
[2024-04-15] MEDS: K and/or MAG REPLACEMENT MC SCH (18:41)
[2024-04-15] MEDS: carVEDilol 3.125mg tablet PO SCH (20:00)
[2024-04-15] MEDS: duloxetine 20mg capsule.DR PO SCH (20:10)
[2024-04-15] MEDS: docusate sod 100mg capsule PO SCH (20:10)
[2024-04-15] MEDS: heparin, porcine 5000 units/ml vial SQ SCH (20:11)
[2024-04-15] MEDS: furosemide 20 MG/2 ML vial IV SCH (20:21)
[2024-04-15] MEDS: midodrine 5mg tablet PO SCH (20:49)
[2024-04-15] MEDS: LEVALBUTEROL HCL 1.25 MG/3 ML VIAL.NEB INH ONE (20:50)
[2024-04-15] MEDS: temazepam 15mg capsule PO PRN (22:37)
[2024-04-15] MEDS: budesonide 0.5mg/2ml UD nebule IH SCH (22:43)
[2024-04-15] MEDS: ipratropium/albuterol 3ml nebule NEB SCH (22:44)
[2024-04-15] MEDS: piperacillin/tazo 4.5gm/100ml 100 ML IV SCH (23:41)
[2024-04-16] VITALS (31 sets, daily range): BP systolic 75–96; BP diastolic 41–68; PULSE 65–114; RESP 13–24; TEMP 96.8–98; O2SAT 93–98
[2024-04-16 02:42] LABS: BASOPHILS % (AUTO) 0.2 % (0-1); EOSINOPHILS # (AUTO) 0.1 X10'3 (0-0.9); EOSINOPHILS % (AUTO) 0.6 % (0-6); HEMATOCRIT 39.2 % (42.0-52.0); HEMOGLOBIN 12.5 g/dl (14.0-17.9); LYMPHOCYTES # (AUTO) 1.2 X10'3 (1.1-4.8); LYMPHOCYTES % (AUTO) 11.8 % (21-51); MEAN CORPUSCULAR HEMOGLOBIN 28.2 PG (27.0-31.0); MEAN CORPUSCULAR HGB CONC 31.9 g/dL (33.0-36.5); MEAN CORPUSCULAR VOLUME 88.6 FL (78-98); MEAN PLATELET VOLUME 9.2 FL (7.4-10.4); MONOCYTES # (AUTO) 1.2 X10'3 (0-0.9); MONOCYTES % (AUTO) 12.2 % (2-12); NEUTROPHILS # (AUTO) 7.5 X10'3 (1.8-7.7); NEUTROPHILS % (AUTO) 75.2 % (42-75); PLATELET COUNT 177 X10'3 (140-440); RED BLOOD COUNT 4.43 X10'6 (4.70-6.10)
[2024-04-16 02:58] LABS: ALANINE AMINOTRANSFERASE 133 U/L (12-78); ALBUMIN 2.9 G/DL (3.4-5.0); ALBUMIN/GLOBULIN RATIO 0.9 (1.1-1.5); ALKALINE PHOSPHATASE 141 IU/L (46-116); ANION GAP 7 (8-16); ASPARTATE AMINO TRANSFERASE 106 U/L (10-37); BILIRUBIN,TOTAL 1.3 MG/DL (0.1-1.0); BLOOD UREA NITROGEN 37 MG/DL (7-18); BUN/CREATININE RATIO 24.7 (10.0-20.0); CALCIUM 9.1 MG/DL (8.5-10.1); CHLORIDE 95 MMOL/L (99-107); GLUCOSE 102 MG/DL (70-104); POTASSIUM 4.1 MMOL/L (3.5-5.1); SODIUM 133 MMOL/L (135-145); eCRCL 44 ML/MIN; eGFR 45 ML/MIN
[2024-04-16] MEDS ORDERED: levoTHYROXINE 112mcg tablet PO SCH (08:00)
[2024-04-16] MEDS: fludrocortisone acetate 0.1mg tablet PO SCH (08:48)
[2024-04-16] MEDS: rivaroxaban 20mg tablet PO SCH (08:49)
[2024-04-16] MEDS: atorvastatin 10mg tablet PO SCH (08:49)
[2024-04-16] MEDS: nystatin 500,000 unit/5ML UD oral suspension PO SCH (21:00)
[2024-04-17] VITALS (18 sets, daily range): BP systolic 72–146; BP diastolic 37–110; PULSE 55–104; RESP 11–20; TEMP 96.3–97.6; O2SAT 84–97
[2024-04-17 06:30] LABS: BASOPHILS % (AUTO) 0.4 % (0-1); EOSINOPHILS # (AUTO) 0.2 X10'3 (0-0.9); EOSINOPHILS % (AUTO) 1.7 % (0-6); HEMATOCRIT 39.7 % (42.0-52.0); HEMOGLOBIN 12.6 g/dl (14.0-17.9); LYMPHOCYTES # (AUTO) 0.6 X10'3 (1.1-4.8); LYMPHOCYTES % (AUTO) 5.5 % (21-51); MEAN CORPUSCULAR HEMOGLOBIN 28.5 PG (27.0-31.0); MEAN CORPUSCULAR HGB CONC 31.8 g/dL (33.0-36.5); MEAN CORPUSCULAR VOLUME 89.5 FL (78-98); MONOCYTES # (AUTO) 0.8 X10'3 (0-0.9); MONOCYTES % (AUTO) 7.8 % (2-12); NEUTROPHILS # (AUTO) 9.2 X10'3 (1.8-7.7); NEUTROPHILS % (AUTO) 84.6 % (42-75); PLATELET COUNT 166 X10'3 (140-440); RED BLOOD COUNT 4.44 X10'6 (4.70-6.10); RED CELL DISTRIBUTION WIDTH 17.3 % (11.5-14.5); WHITE BLOOD COUNT 10.9 X10'3 (4.5-11.0)
[2024-04-17 06:39] LABS: ALANINE AMINOTRANSFERASE 106 U/L (12-78); ALBUMIN 2.5 G/DL (3.4-5.0); ALBUMIN/GLOBULIN RATIO 0.9 (1.1-1.5); ALKALINE PHOSPHATASE 136 IU/L (46-116); ANION GAP 3 (8-16); ASPARTATE AMINO TRANSFERASE 81 U/L (10-37); BILIRUBIN,TOTAL 1.8 MG/DL (0.1-1.0); BLOOD UREA NITROGEN 24 MG/DL (7-18); CALCIUM 8.6 MG/DL (8.5-10.1); CHLORIDE 99 MMOL/L (99-107); GLUCOSE 83 MG/DL (70-104); POTASSIUM 3.9 MMOL/L (3.5-5.1); SODIUM 137 MMOL/L (135-145); TOTAL CARBON DIOXIDE 34.8 MMOL/L (24-32); TOTAL PROTEIN 5.4 G/DL (6.4-8.2); eCRCL 55 ML/MIN; eGFR 59 ML/MIN
[2024-04-17] MEDS: metoprolol succinate 25mg (24-HOUR) SR. Tablet PO SCH (08:00)
[2024-04-17] MEDS ORDERED: ondansetron 4mg rapidly disintigrating tab PO PRN (16:05)
[2024-04-17] MEDS: albumin (human) 25% 100 ML IV solution IV ONE (21:23)
[2024-04-18] VITALS (31 sets, daily range): BP systolic 77–155; BP diastolic 40–82; PULSE 50–99; RESP 14–18; TEMP 97.2–97.9; O2SAT 88–100
[2024-04-18 07:52] LABS: BASOPHILS % (AUTO) 0.5 % (0-1); EOSINOPHILS # (AUTO) 0.2 X10'3 (0-0.9); EOSINOPHILS % (AUTO) 2.6 % (0-6); HEMOGLOBIN 12.3 g/dl (14.0-17.9); LYMPHOCYTES # (AUTO) 0.6 X10'3 (1.1-4.8); LYMPHOCYTES % (AUTO) 7.8 % (21-51); MEAN CORPUSCULAR HEMOGLOBIN 28.7 PG (27.0-31.0); MEAN CORPUSCULAR HGB CONC 32.3 g/dL (33.0-36.5); MEAN CORPUSCULAR VOLUME 88.8 FL (78-98); MEAN PLATELET VOLUME 8.7 FL (7.4-10.4); MONOCYTES # (AUTO) 0.6 X10'3 (0-0.9); NEUTROPHILS # (AUTO) 6.3 X10'3 (1.8-7.7); NEUTROPHILS % (AUTO) 81.1 % (42-75); PLATELET COUNT 150 X10'3 (140-440); RED BLOOD COUNT 4.28 X10'6 (4.70-6.10); RED CELL DISTRIBUTION WIDTH 17.1 % (11.5-14.5); WHITE BLOOD COUNT 7.8 X10'3 (4.5-11.0)
[2024-04-18] MEDS ORDERED: phenylephrine 10mg/ml inj. -priapism dosing ONE (09:27)
[2024-04-18] MEDS ORDERED: midazolam 1 mg/ML 2ml injection ONE (09:28)
[2024-04-18] MEDS ORDERED: fentaNYL/PF 50MCG/1 ML 2ML syringe ONE (09:28)
[2024-04-18 09:52] LABS: ALANINE AMINOTRANSFERASE 71 U/L (12-78); ALBUMIN/GLOBULIN RATIO 1.2 (1.1-1.5); ALKALINE PHOSPHATASE 108 IU/L (46-116); ANION GAP 5 (8-16); ASPARTATE AMINO TRANSFERASE 39 U/L (10-37); BLOOD UREA NITROGEN 17 MG/DL (7-18); BUN/CREATININE RATIO 17.5 (10.0-20.0); CALCIUM 8.9 MG/DL (8.5-10.1); CHLORIDE 100 MMOL/L (99-107); CREATININE 0.97 MG/DL (0.60-1.10); GLUCOSE 86 MG/DL (70-104); POTASSIUM 3.9 MMOL/L (3.5-5.1); SODIUM 138 MMOL/L (135-145); TOTAL CARBON DIOXIDE 32.6 MMOL/L (24-32); TOTAL PROTEIN 5.5 G/DL (6.4-8.2); eCRCL 68 ML/MIN; eGFR 75 ML/MIN
[2024-04-18] MEDS ORDERED: magnesium 1 GM/2 ML inj ONE ×2 (10:00)
[2024-04-18] MEDS: cosyntropin 250mcg inj IM ONE (11:30)
[2024-04-18] MEDS: magnesium hydroxide 30ml (MOM) UD suspension PO PRN (11:31)
[2024-04-18] MEDS: LIDOcaine 1% (10mg/ml) 2ml vial ONE (11:31)
[2024-04-18] MEDS: nystatin 500,000 unit/5ML UD oral suspension PO SCH (11:33)
[2024-04-18 11:41] LABS: PLEURAL FLUID PH 7.476 (7.63-7.65)
[2024-04-18 11:44] LABS: MAGNESIUM 1.9 MG/DL (1.5-2.4)
[2024-04-18 12:02] LABS: GLUCOSE,BODY FLUID 96 MG/DL; LDH,BODY FLUID 52 U/L
[2024-04-18 12:12] LABS: LYMPHOCYTES,BODY FLUID 20 %; MONOCYTES,BODY FLUID 36 %; NEUTROPHILS,BODY FLUID 44 %
[2024-04-18 12:13] LABS: BF MESOTHELIAL CELLS OCCASIONAL; BF RBC COUNT 48 /CU MM; BF WBC COUNT 250 /CU MM (0-1000); BFAPPEAR CLEAR; BFCOLOR YELLOW; BFSOURCE LEFT PLEURAL FLD; BFVOLUME 30 ML
[2024-04-18 12:21] LABS: TOTAL PROTEIN,BODY FLUID < 2.0 G/DL
[2024-04-18 12:30] LABS: BFSOURCE LEFT PLEURAL FLD
[2024-04-18] MEDS: bisacodyl 10mg suppository rectal RC PRN (23:56)
[2024-04-19] VITALS (23 sets, daily range): BP systolic 73–94; BP diastolic 40–61; PULSE 50–88; RESP 12–20; TEMP 95.6–97.8; O2SAT 91–100
[2024-04-19] MEDS ORDERED: diltiazem-NS 100mg/100ml 100 ML IV SCH (01:30)
[2024-04-19 07:27] LABS: BASOPHILS % (AUTO) 0.2 % (0-1); EOSINOPHILS # (AUTO) 0.1 X10'3 (0-0.9); EOSINOPHILS % (AUTO) 1.2 % (0-6); HEMATOCRIT 35.9 % (42.0-52.0); HEMOGLOBIN 11.8 g/dl (14.0-17.9); LYMPHOCYTES % (AUTO) 13.6 % (21-51); MEAN CORPUSCULAR HEMOGLOBIN 29.2 PG (27.0-31.0); MEAN CORPUSCULAR HGB CONC 32.9 g/dL (33.0-36.5); MEAN CORPUSCULAR VOLUME 88.7 FL (78-98); MEAN PLATELET VOLUME 8.6 FL (7.4-10.4); MONOCYTES # (AUTO) 0.8 X10'3 (0-0.9); MONOCYTES % (AUTO) 11.4 % (2-12); NEUTROPHILS # (AUTO) 5.3 X10'3 (1.8-7.7); NEUTROPHILS % (AUTO) 73.6 % (42-75); PLATELET COUNT 151 X10'3 (140-440); RED BLOOD COUNT 4.04 X10'6 (4.70-6.10); RED CELL DISTRIBUTION WIDTH 17.2 % (11.5-14.5); WHITE BLOOD COUNT 7.1 X10'3 (4.5-11.0)
[2024-04-19 07:52] LABS: ALANINE AMINOTRANSFERASE 58 U/L (12-78); ALBUMIN 2.8 G/DL (3.4-5.0); ALKALINE PHOSPHATASE 105 IU/L (46-116); ANION GAP 8 (8-16); ASPARTATE AMINO TRANSFERASE 28 U/L (10-37); BILIRUBIN,TOTAL 1.5 MG/DL (0.1-1.0); BLOOD UREA NITROGEN 15 MG/DL (7-18); BUN/CREATININE RATIO 14.9 (10.0-20.0); CALCIUM 8.5 MG/DL (8.5-10.1); CHLORIDE 100 MMOL/L (99-107); CREATININE 1.01 MG/DL (0.60-1.10); GLUCOSE 94 MG/DL (70-104); MAGNESIUM 2.2 MG/DL (1.5-2.4); POTASSIUM 3.6 MMOL/L (3.5-5.1); SODIUM 140 MMOL/L (135-145); TOTAL CARBON DIOXIDE 31.6 MMOL/L (24-32); TOTAL PROTEIN 5.6 G/DL (6.4-8.2); eCRCL 65 ML/MIN; eGFR 72 ML/MIN
[2024-04-19] MEDS: albumin (human) 25% 100 ML IV solution IV SCH (14:28)
[2024-04-19] MEDS: DOBUTamine-DoBUTrex 500mg/D5W 250 ML IV SCH (22:19)
[2024-04-20] VITALS (25 sets, daily range): BP systolic 76–110; BP diastolic 41–70; PULSE 78–100; RESP 11–21; TEMP 97–98; O2SAT 88–100
[2024-04-20 07:01] LABS: BASOPHILS % (AUTO) 0.3 % (0-1); EOSINOPHILS # (AUTO) 0.1 X10'3 (0-0.9); EOSINOPHILS % (AUTO) 1.2 % (0-6); HEMATOCRIT 35.9 % (42.0-52.0); HEMOGLOBIN 11.6 g/dl (14.0-17.9); LYMPHOCYTES # (AUTO) 0.9 X10'3 (1.1-4.8); LYMPHOCYTES % (AUTO) 11.4 % (21-51); MEAN CORPUSCULAR HEMOGLOBIN 28.8 PG (27.0-31.0); MEAN CORPUSCULAR HGB CONC 32.4 g/dL (33.0-36.5); MEAN CORPUSCULAR VOLUME 88.9 FL (78-98); MEAN PLATELET VOLUME 8.6 FL (7.4-10.4); MONOCYTES # (AUTO) 0.6 X10'3 (0-0.9); MONOCYTES % (AUTO) 8.1 % (2-12); NEUTROPHILS # (AUTO) 6.2 X10'3 (1.8-7.7); PLATELET COUNT 123 X10'3 (140-440); RED BLOOD COUNT 4.03 X10'6 (4.70-6.10); RED CELL DISTRIBUTION WIDTH 17.1 % (11.5-14.5); WHITE BLOOD COUNT 7.8 X10'3 (4.5-11.0)
[2024-04-20 07:28] LABS: ALBUMIN 3.2 G/DL (3.4-5.0); ANION GAP 6 (8-16); BILIRUBIN,TOTAL 1.6 MG/DL (0.1-1.0); BLOOD UREA NITROGEN 17 MG/DL (7-18); BUN/CREATININE RATIO 17.3 (10.0-20.0); CALCIUM 8.4 MG/DL (8.5-10.1); CHLORIDE 99 MMOL/L (99-107); CREATININE 0.98 MG/DL (0.60-1.10); GLUCOSE 91 MG/DL (70-104); MAGNESIUM 2.2 MG/DL (1.5-2.4); POTASSIUM 3.8 MMOL/L (3.5-5.1); SODIUM 136 MMOL/L (135-145); TOTAL CARBON DIOXIDE 30.8 MMOL/L (24-32); TOTAL PROTEIN 5.8 G/DL (6.4-8.2); eCRCL 67 ML/MIN; eGFR 74 ML/MIN
[2024-04-20 07:29] LABS: ALANINE AMINOTRANSFERASE 46 U/L (12-78); ALBUMIN/GLOBULIN RATIO 1.2 (1.1-1.5); ALKALINE PHOSPHATASE 94 IU/L (46-116); ASPARTATE AMINO TRANSFERASE 20 U/L (10-37)
[2024-04-20] MEDS: lactose-reduced food (Ensure Enlive) - 237ml bottle PO SCH (13:00)
[2024-04-20] MEDS: methylPREDNISolone sod succ 125mg/2ml vial IV SCH (13:48)
[2024-04-21] VITALS (19 sets, daily range): BP systolic 95–112; BP diastolic 58–71; PULSE 78–102; RESP 15–21; TEMP 96.1–98.2; O2SAT 89–98
[2024-04-22] VITALS (7 sets, daily range): BP systolic 109–112; BP diastolic 69–70; PULSE 90–95; RESP 16–19; TEMP 97–97.3; O2SAT 95–98
== END 2024-04-22 09:40 | DRG 177 ==
LOC: CICU 2S 19:15 → UNDOADMIN 21:40 → CICU 2S 21:40 → PCU 3S 04-16 10:57
PROVIDERS: ADMIT Internal Medicine Critical Care Medicine; ATTEND Internal Medicine Critical Care Medicine
PROC: 0W9B3ZZ Drainage of Left Pleural Cavity, Percutaneous Approach (ICD-10-PCS; principal; 2024-04-18)
PROC: 0W993ZZ Drainage of Right Pleural Cavity, Percutaneous Approach (ICD-10-PCS; 2024-04-18)
PROC: 5A2204Z Restoration of Cardiac Rhythm, Single (ICD-10-PCS; 2024-04-18)
DX: J69.0 Pneumonitis due to inhalation of food and vomit (principal); I50.23 Acute on chronic systolic (congestive) heart failure; J96.00 Acute respiratory failure, unspecified whether with hypoxia or hypercapnia; N17.0 Acute kidney failure with tubular necrosis; J44.1 Chronic obstructive pulmonary disease with (acute) exacerbation; J44.0 Chronic obstructive pulmonary disease with (acute) lower respiratory infection; I42.0 Dilated cardiomyopathy; E27.40 Unspecified adrenocortical insufficiency; J15.9 Unspecified bacterial pneumonia; I11.0 Hypertensive heart disease with heart failure; I95.9 Hypotension, unspecified; E78.00 Pure hypercholesterolemia, unspecified; R74.01 Elevation of levels of liver transaminase levels; I48.91 Unspecified atrial fibrillation; I77.1 Stricture of artery; Z96.612 Presence of left artificial shoulder joint; Z96.643 Presence of artificial hip joint, bilateral; Z66 Do not resuscitate; Z91.09 Other allergy status, other than to drugs and biological substances; I25.2 Old myocardial infarction; Z87.891 Personal history of nicotine dependence; Z79.899 Other long term (current) drug therapy; Z79.01 Long term (current) use of anticoagulants; Z85.819 Personal history of malignant neoplasm of unspecified site of lip, oral cavity, and pharynx; Z83.3 Family history of diabetes mellitus
CPT/HCPCS: 32555; 36415; 71045; 80053; 82945; 83615; 83735; 83880; 83986; 84100; 84157; 84402; 84443; 84484; 85025; 87070; 87081; 88108; 88305; 88341; 88342; 89051; 92508; 92616; 92960; 93005; 93308; 93925; 94640; 94760; 97110; 97116; 97161; 97530; 99152; 99153; A4615; A6212; A6213; A6222; A6223; A6250; A6258; A6446; A6449; A6590; C1729; G0378; J0282; J1250; J1644; J1940; J2250; J2370; J2543; J2919; J3010; J3475; J3490; J7040; P9047; Q0177